=== PATIENT | male | born 2000 | race Caucasian/White ===

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

== ENCOUNTER → 2021-03-27 | Outpatient (CLI) | payer BC, OTHER | LOC: CAT 11:04 | PROVIDERS: ATTEND Nurse Practitioner | DX: S02.641A Fracture of ramus of right mandible, initial encounter for closed fracture (principal); R68.84 Jaw pain; X58.XXXA Exposure to other specified factors, initial encounter; Y93.89 Activity, other specified; Y92.89 Other specified places as the place of occurrence of the external cause; Y99.8 Other external cause status ==